=== PATIENT | male | born 2000 | race Caucasian/White ===

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

== ENCOUNTER → 2020-09-16 | Outpatient (CLI) | payer OTHER ==
[~2020-09-16] MED LIST: ZOFRAN4 MG PO
== END ==
LOC: KOH-I 16:44
DX: M54.2 Cervicalgia (principal); M54.9 Dorsalgia, unspecified; R05 Cough
CPT/HCPCS: 71046; 72050; 72070; 72100